=== PATIENT | female | born 1935 ===

== ENCOUNTER 2020-04-25 17:42 | Inpatient (IN) | payer OTHER, MEDICARE ==
--- NOTE | 2020-04-25 19:41 | RAD REPORT ---
EXAM DESCRIPTION: Christiano Single View04/25/2020 7:10 pm CLINICAL HISTORY: cough COMPARISON: none FINDINGS: The lungs are hyperaerated. The aorta is tortuous/ectatic The lungs appear clear of acute infiltrate. The heart is normal size IMPRESSION: No acute abnormalities displayed
[2020-04-25] MEDS ORDERED: NA CHLORIDE 0.9% 500 ML ONE (19:51)
[2020-04-25] MEDS ORDERED: NA CHLORIDE 0.9% 1,000 ML ONE (19:52)
[2020-04-25 19:59] LABS: Absolute Lymphocytes (CBC) 2.2 K/uL (0.7-4.9); Basophils % 0.4 % (0-1.3); Hematocrit 38.1 % (36.0-45.0); Lymphocytes % 16.2 % (15.3-44.8); MPV 9.6 fL (7.6-11.3); RBC Red Blood Cell Count 4.18 M/uL (3.86-4.86)
[2020-04-25 20:00] LABS: Protime INR 1.16
[2020-04-25 20:15] LABS: ALT/SGPT 10 U/L (12-78); AST/SGOT 18 U/L (15-37); Albumin 2.6 g/dL (3.4-5.0); Alkaline Phosphatase 83 U/L (45-117); BUN Blood Urea Nitrogen 140 mg/dL (7-18); Bicarbonate 19 mmol/L (21-32); Bilirubin Direct 0.1 mg/dL (0-0.2); Bilirubin Total 0.3 mg/dL (0.2-1.0); Glucose Level 104 mg/dL (74-106); Lipase 255 U/L (73-393); Magnesium 2.9 mg/dL (1.8-2.4); NT PRO-BNP 4378 pg/mL (<450); Potassium 5.2 mmol/L (3.5-5.1); Protein, Total 9.4 g/dL (6.4-8.2); Sodium Level 141 mmol/L (136-145); Troponin (Emerg Dept Use Only) 0.02 ng/mL (0.0-0.045)
[2020-04-25 20:16] LABS: Valproic Acid (Depakene) Level < 3.0 ug/mL (50-100)
[2020-04-25] MEDS ORDERED: CEFTRIAXONE/SWI 1gm 1 GM/10 ML SYR ONE (20:28)
[2020-04-25 21:20] LABS: Urine Blood 2+ (NEG); Urine Glucose NEGATIVE (NEG); Urine Protein 2+ (NEG); Urine pH 7.5 (5.0-7.0)
[2020-04-25 22:59] LABS: Urine Amorphous Sediment 1+ /HPF (NONE SEEN); Urine Bacteria >50 /HPF (<20); Urine Culture Reflex Order REFLEXED; Urine Mucus 1+ /HPF (NONE SEEN)
--- NOTE | 2020-04-25 23:14 | EDPHYS ---
Physician Documentation [facility] Name: Faina Peter Age: 84 yrs Sex: Female : 1935 Arrival Date: 04/25/2020 Time: 17:50 Bed 14 Private MD: ED Physician Jin Pastor HPI: 04/25 19:09 This 84 yrs old Unknown Female presents to ER via EMS with complaints of Decreased christina Appetite. 19:09 The patient has shortness of breath at rest, with light activity. Onset: The christina symptoms/episode began/occurred 2 day(s) ago. Duration: The symptoms are continuous, and are steadily getting worse. The patient's shortness of breath is aggravated by coughing, light activity. weak, decreased appetite, dementia, and dnr. Associated signs and symptoms: Pertinent positives: non-productive cough, dizziness, nausea. Severity of symptoms: At their worst the symptoms were mild moderate in the emergency department the symptoms are unchanged. Historical: - Allergies: 18:02 No Known Allergies; jl7 - Home Meds: 18:02 furosemide 20 mg Oral tab [Active]; aspirin 81 mg Oral TbEC [Active]; Depakote 250 mg jl7 Oral TbEC 1 tab once daily [Active]; Symbicort 80-4.5 mcg/actuation inhalation HFAA [Active]; Remeron 15 mg Oral tab .5 tab once daily [Active]; Coreg 25 mg Oral tab 1 tab 2 times per day [Active]; sertraline 25 mg oral tab 1 tab once daily [Active]; Klor-Con Sprinkle 8 mEq oral cpER 1 cap once daily [Active]; Norvasc 5 mg Oral tab 1 tab once daily [Active]; pravastatin 10 mg oral tab 1 tab once daily [Active]; clopidogrel 75 mg oral tab 1 tab once daily [Active]; - PMHx: 18:02 COPD; CHF; Hypertension; Diabetes - NIDDM; TIA; CAD; Dementia; GERD; Hyperlipidemia; jl7 chronic kidney disease; Anxiety; Depression; - Immunization history:: Adult Immunizations up to date. - Social history:: Smoking status: unknown. - Family history:: not pertinent. ROS: 19:09 Constitutional: Negative for fever, chills, and weight loss, Eyes: Negative for injury, christina pain, redness, and discharge, ENT: Negative for injury, pain, and discharge, Neck: Negative for injury, pain, and swelling, Cardiovascular: Negative for chest pain, palpitations, and edema, Abdomen/GI: Negative for abdominal pain, nausea, vomiting, diarrhea, and constipation, Back: Negative for injury and pain, : Negative for injury, bleeding, discharge, and swelling, Skin: Negative for injury, rash, and discoloration, Psych: Negative for depression, anxiety, suicide ideation, homicidal ideation, and hallucinations, Allergy/Immunology: Negative for hives, rash, and allergies, Endocrine: Negative for neck swelling, polydipsia, polyuria, polyphagia, and marked weight changes, Hematologic/Lymphatic: Negative for swollen nodes, abnormal bleeding, and unusual bruising. 19:09 Respiratory: Positive for cough, with no reported sputum. 19:09 Abdomen/GI: Positive for anorexia. 19:09 Neuro: Positive for weakness. Exam: 19:09 Constitutional: This is a well developed, well nourished patient who is awake, alert, christina and in no acute distress. Head/Face: Normocephalic, atraumatic. ENT: Nares patent. No nasal discharge, no septal abnormalities noted. Tympanic membranes are normal and external auditory canals are clear. Oropharynx with no redness, swelling, or masses, exudates, or evidence of obstruction, uvula midline. Mucous membranes moist. Neck: Trachea midline, no thyromegaly or masses palpated, and no cervical lymphadenopathy. Supple, full range of motion without nuchal rigidity, or vertebral point tenderness. No Meningismus. Chest/axilla: Normal chest wall appearance and motion. Nontender with no deformity. No lesions are appreciated. Cardiovascular: Regular rate and rhythm with a normal S1 and S2. No gallops, murmurs, or rubs. Normal PMI, no JVD. No pulse deficits. Back: No spinal tenderness. No costovertebral tenderness. Full range of motion. Female : Normal external genitalia. Skin: Warm, dry with normal turgor. Normal color with no rashes, no lesions, and no evidence of cellulitis. 19:09 Eyes: Conjunctiva: pale. 19:09 Respiratory: the patient does not display signs of respiratory distress, Respirations: labored breathing, that is mild, Breath sounds: decreased breath sounds, rhonchi, Respiratory rate: 17 19:36 Musculoskeletal/extremity: DVT Exam: No signs of deep vein thrombosis. no pain, no christina swelling, no tenderness, negative Homans' sign noted on exam, no appreciated bluish discoloration, no erythema, no increased warmth. Vital Signs: 17:50 BP 111 / 65; Pulse 68; Resp 17 S; Temp 98.2(O); Pulse Ox 100% on R/A; jl7 18:00 BP 107 / 65; Pulse 70; Resp 17; Pulse Ox 100% ; Weight 48.53 kg; jl7 19:00 BP 93 / 54; Pulse 76; Resp 17; Pulse Ox 100% ; jl7 20:39 BP 107 / 48; Pulse 70; Resp 19; Temp 98.6; Pulse Ox 100% on NC; Pain 0/10; fu 22:00 BP 92 / 81; Pulse 60; Resp 16; Temp 97.6(T); Pulse Ox 100% on 2 lpm NC; Pain 0/10; fu 23:00 BP 108 / 75; Pulse 59; Resp 18; Pulse Ox 100% on 2 lpm NC; Pain 0/10; fu 04/26 00:00 BP 95 / 53; Pulse 68; Resp 14; Pulse Ox 100% on 2 lpm NC; fu 01:00 BP 92 / 58; Pulse 68; Resp 15; Pulse Ox 99% on 2 lpm NC; fu 01:30 BP 104 / 54; Pulse 70; Resp 13; Temp 97.1; Pulse Ox 100% on 2 lpm NC; fu MDM: 04/25 18:33 Patient medically screened. christina 19:13 Differential diagnosis: Anemia CHF exacerbation, Chronic Obstructive Pulmonary Disease christina pneumonia, pulmonary edema, Sepsis. Antibiotic administration: rocephin. Differential Diagnosis altered mental status, sepsis. The patient's Wells Deep Vein Thrombosis Score was calculated as follows: Imm/Surg in last 4 wks (1.5 Pts) Total Score: 0-2 Pts- Low Risk. The patient's pulmonary embolism risk score was calculated as follows: patient has experienced immobilization or surgery in the last four weeks (1.5 Pts) Total Score: 0-2 points. This patient was found to be at low risk for a pulmonary embolism by using the Well's assessment criteria. Immunization status: Pneumococcal vaccine: Influenza vaccine: Data reviewed: vital signs, nurses notes, lab test result(s), EKG, radiologic studies. Data interpreted: highway painter: rate is 76 beats/min, rhythm is normal sinus rhythm, Pulse oximetry: on 2L(s) per nasal canula, is 100 %. Test interpretation: by ED physician or midlevel provider: ECG, plain radiologic studies. Counseling: I had a detailed discussion with the patient and/or guardian regarding: the historical points, exam findings, and any diagnostic results supporting the discharge/admit diagnosis, lab results, radiology results, the need for further work-up and treatment in the hospital. 19:19 Transition of care: After a detail discussion of the patient's case, care is christina transferred to Singh MALONEY. ED course: singh rebolledo to dispo patient, admission . 04/25 18:52 Order name: Basic Metabolic Panel [facility] 04/25 18:52 Order name: CBC with Diff [facility] 04/25 18:52 Order name: LFT's [facility] 04/25 18:52 Order name: Magnesium [facility] 04/25 18:52 Order name: NT PRO-BNP [facility] 04/25 18:52 Order name: PT-INR; Complete Time: 21:06 [facility] 04/25 18:52 Order name: Troponin (emerg Dept Use Only); Complete Time: 21:06 [facility] 04/25 18:52 Order name: Blood Culture Adult (2) [facility] 04/25 18:52 Order name: Lipase; Complete Time: 21:06 [facility] 04/25 18:52 Order name: Lactate; Complete Time: 21:06 [facility] 04/25 18:52 Order name: Procalcitonin; Complete Time: 21:06 [facility] 04/25 18:52 Order name: Depakote; Complete Time: 21:06 [facility] 04/25 18:52 Order name: Basic Metabolic Panel; Complete Time: 21:06 [facility] 04/25 18:52 Order name: CBC with Automated Diff; Complete Time: 21:06 [facility] 04/25 18:52 Order name: XRAY Chest (1 view); Complete Time: 21:06 [facility] 04/25 18:52 Order name: EKG; Complete Time: 18:53 [facility] 04/25 18:52 Order name: Cardiac monitoring; Complete Time: 19:39 [facility] 04/25 18:52 Order name: EKG - Nurse/Tech; Complete Time: 19:59 [facility] 04/25 18:52 Order name: IV Saline Lock; Complete Time: 19:39 [facility] 04/25 18:52 Order name: Labs collected and sent; Complete Time: 19:39 [facility] 04/25 18:52 Order name: Liver (Hepatic) Function; Complete Time: 21:06 [facility] 04/25 18:52 Order name: Magnesium; Complete Time: 21:06 [facility] 04/25 18:52 Order name: NT PRO-BNP; Complete Time: 21:06 [facility] 04/25 21:14 Order name: Urine Dipstick--Ancillary (enter results); Complete Time: 21:45 tt3 04/25 21:38 Order name: Urine Microscopic Only; Complete Time: 23:12 tt3 04/25 23:01 Order name: Urine Culture [facility] 04/25 23:26 Order name: COVID-19 jr8 04/25 18:52 Order name: O2 Per Protocol; Complete Time: 19:39 [facility] 04/25 18:52 Order name: O2 Sat Monitoring; Complete Time: 19:39 [facility] 04/25 18:52 Order name: Urine Dipstick-Ancillary (obtain specimen); Complete Time: 00:31 [facility] 04/25 18:52 Order name: Crystal; Complete Time: 21:06 [facility] 04/25 21:38 Order name: Urine Dipstick-Ancillary (obtain specimen); Complete Time: 00:46 tt3 Administered Medications: 19:46 Drug: NS 0.9% 500 ml Route: IV; Rate: bolus; Site: right forearm; fu 20:46 Follow up: Response: No adverse reaction fu 20:21 Drug: Rocephin 1 grams Route: IV; Rate: per protocol; Site: right forearm; fu 20:21 Follow up: Response: No adverse reaction fu 20:21 Drug: NS 0.9% 1000 ml Route: IV; Rate: 100 ml/hr; Site: right forearm; fu Disposition: 04/25/20 23:14 Hospitalization ordered by Lucas Delacruz for Inpatient Admission. Preliminary diagnosis are Dehydration, Hypotension, Urinary tract infection, site not specified, Acute on Chronic Kidney Failure. - Bed requested for Telemetry/MedSurg (Inpatient). - Status is Inpatient Admission. fu - Condition is Stable. - Problem is new. - Symptoms have improved. Signatures: Dispatcher [employer] EDJin Bella MD MD cha Roszak, Josh, PA PA jr8 Garcia, Cindy, RN RN cg Aron Buchanan RN RN jl7 Foreign Larose, DARRICK HOLLINGSWORTH Marcus, Maged tt3 Corrections: (The following items were deleted from the chart) 23:23 23:14 Hospitalization Ordered by Lucas Sexton for Inpatient Admission. Preliminary jr8 diagnosis is Dehydration; Hypotension; Urinary tract infection, site not specified; Chronic kidney disease (CKD). Bed requested for Telemetry/MedSurg (Inpatient). Status is Inpatient Admission. Condition is Stable. Problem is new. Symptoms have improved. jr8 04/26 00:50 04/25 23:23 04/25/2020 23:14 Hospitalization Ordered by Lucas Darshan for Inpatient cg Admission. Preliminary diagnosis is Dehydration; Hypotension; Urinary tract infection, site not specified; Acute on Chronic Kidney Failure. Bed requested for Telemetry/MedSurg (Inpatient). Status is Inpatient Admission. Condition is Stable. Problem is new. Symptoms have improved. [facility] 04/26 01:51 00:50 04/25/2020 23:14 Hospitalization Ordered by [facility] for Inpatient cg Admission. Preliminary diagnosis is Dehydration; Hypotension; Urinary tract infection, site not specified; Acute on Chronic Kidney Failure. Bed requested for Telemetry/MedSurg (Inpatient). Status is Inpatient Admission. Condition is Stable. Problem is new. Symptoms have improved. cg 03:36 01:51 04/25/2020 23:14 Hospitalization Ordered by Lucas Delacruz for Inpatient fu Admission. Preliminary diagnosis is Dehydration; Hypotension; Urinary tract infection, site not specified; Acute on Chronic Kidney Failure. Bed requested for Telemetry/MedSurg (Inpatient). Status is Inpatient Admission. Condition is Stable. Problem is new. Symptoms have improved. cg
--- NOTE | 2020-04-25 23:14 | ER ---
Nurse's Notes [facility] Name: Faina Peter Age: 84 yrs Sex: Female : 1935 Arrival Date: 04/25/2020 Time: 17:50 Bed 14 Private MD: Diagnosis: Dehydration;Hypotension;Urinary tract infection, site not specified;Acute on Chronic Kidney Failure Presentation: 04/25 17:50 Chief complaint: EMS states: Toned out to transport pt to ER for decreased appetite and jl7 fluid intake x 2 days, pt's BP on arrival was 80/40, gave 450 mL NS IV and BP came up to 120/75. Coronavirus screen: Proceed with normal triage. Patient denies a cough. Patient denies shortness of breath or difficulty breathing. Patient denies measured and/or subjective temperature greater than 100.4F prior to today's visit. Patient denies travel on a cruise ship or to a country the [facility] currently lists as an affected area. Patient denies contact with known and/or suspected case of COVID-19. Ebola Screen: No symptoms or risks identified at this time. Initial Sepsis Screen: Does the patient meet any 2 criteria? No. Patient's initial sepsis screen is negative. Does the patient have a suspected source of infection? No. Patient's initial sepsis screen is negative. Risk Assessment: Do you want to hurt yourself or someone else? Patient reports no desire to harm self or others. Onset of symptoms was April 23, 2020. Care prior to arrival: Medication(s) given: Normal saline infusion, 450 mL IV initiated. 20 GA, in the right forearm, Glucose check: 164. Transition of care: La Garcia. 17:50 Method Of Arrival: EMS: SABRINA jl7 17:50 Acuity: CHRISTIAN 3 jl7 Triage Assessment: 18:02 General: Appears in no apparent distress. uncomfortable, Behavior is calm, cooperative, jl7 appropriate for age. Pain: Denies pain. EENT: Oral mucosa is dry. Neuro: Level of Consciousness is awake, alert, obeys commands, Oriented to person, place. Cardiovascular: Patient's skin is warm and dry. Respiratory: Airway is patent Respiratory effort is even, unlabored, Respiratory pattern is regular, symmetrical. GI: No signs and/or symptoms were reported involving the gastrointestinal system. Derm: Skin is dry, Skin is pale, Skin temperature is warm. Historical: - Allergies: 18:02 No Known Allergies; jl7 - Home Meds: 18:02 furosemide 20 mg Oral tab [Active]; aspirin 81 mg Oral TbEC [Active]; Depakote 250 mg jl7 Oral TbEC 1 tab once daily [Active]; Symbicort 80-4.5 mcg/actuation inhalation HFAA [Active]; Remeron 15 mg Oral tab .5 tab once daily [Active]; Coreg 25 mg Oral tab 1 tab 2 times per day [Active]; sertraline 25 mg oral tab 1 tab once daily [Active]; Klor-Con Sprinkle 8 mEq oral cpER 1 cap once daily [Active]; Norvasc 5 mg Oral tab 1 tab once daily [Active]; pravastatin 10 mg oral tab 1 tab once daily [Active]; clopidogrel 75 mg oral tab 1 tab once daily [Active]; - PMHx: 18:02 COPD; CHF; Hypertension; Diabetes - NIDDM; TIA; CAD; Dementia; GERD; Hyperlipidemia; jl7 chronic kidney disease; Anxiety; Depression; - Immunization history:: Adult Immunizations up to date. - Social history:: Smoking status: unknown. - Family history:: not pertinent. Screenin:00 Abuse screen: Denies threats or abuse. Denies injuries from another. Tuberculosis jl7 screening: No symptoms or risk factors identified. Fall Risk No fall in past 12 months (0 pts). Secondary diagnosis (15 points) dementia, IV access (20 points). Ambulatory Aid- None/Bed Rest/Nurse Assist (0 pts). Gait- Weak (10 pts.). Mental Status- Overestimates/Forgets Limitations (15 pts.). Assessment: 18:05 General: See triage assessment. jl7 19:00 Reassessment: Patient appears in no apparent distress at this time. No changes from fu previously documented assessment. Patient and/or family updated on plan of care and expected duration. Pain level reassessed. Patient is alert, oriented x 3, equal unlabored respirations, skin warm/dry/pink. 20:00 Reassessment: Patient appears in no apparent distress at this time. No changes from fu previously documented assessment. Patient and/or family updated on plan of care and expected duration. Pain level reassessed. Patient is alert, oriented x 3, equal unlabored respirations, skin warm/dry/pink. 21:00 Reassessment: Patient appears in no apparent distress at this time. No changes from fu previously documented assessment. Patient and/or family updated on plan of care and expected duration. Pain level reassessed. Patient is alert, oriented x 3, equal unlabored respirations, skin warm/dry/pink. 22:00 Reassessment: Patient appears in no apparent distress at this time. No changes from fu previously documented assessment. Patient and/or family updated on plan of care and expected duration. Pain level reassessed. Patient is alert, oriented x 3, equal unlabored respirations, skin warm/dry/pink. cueto catheter in place, urine draining freely. 23:00 Reassessment: Patient appears in no apparent distress at this time. No changes from fu previously documented assessment. patient sleep in bed, monitors attached. 23:59 Reassessment: Dr. Delacruz in patient's room. 04/26 02:08 Reassessment: Patient appears in no apparent distress at this time. No changes from fu previously documented assessment. Patient and/or family updated on plan of care and expected duration. Pain level reassessed. Patient is alert, oriented x 3, equal unlabored respirations, skin warm/dry/pink. need for admission instructed to patient. Vital Signs: 04/25 17:50 BP 111 / 65; Pulse 68; Resp 17 S; Temp 98.2(O); Pulse Ox 100% on R/A; jl7 18:00 BP 107 / 65; Pulse 70; Resp 17; Pulse Ox 100% ; Weight 48.53 kg; jl7 19:00 BP 93 / 54; Pulse 76; Resp 17; Pulse Ox 100% ; jl7 20:39 BP 107 / 48; Pulse 70; Resp 19; Temp 98.6; Pulse Ox 100% on NC; Pain 0/10; fu 22:00 BP 92 / 81; Pulse 60; Resp 16; Temp 97.6(T); Pulse Ox 100% on 2 lpm NC; Pain 0/10; fu 23:00 BP 108 / 75; Pulse 59; Resp 18; Pulse Ox 100% on 2 lpm NC; Pain 0/10; fu 04/26 00:00 BP 95 / 53; Pulse 68; Resp 14; Pulse Ox 100% on 2 lpm NC; fu 01:00 BP 92 / 58; Pulse 68; Resp 15; Pulse Ox 99% on 2 lpm NC; fu 01:30 BP 104 / 54; Pulse 70; Resp 13; Temp 97.1; Pulse Ox 100% on 2 lpm NC; fu ED Course: 04/25 17:50 Patient arrived in ED. jl7 17:54 Triage completed. jl7 18:02 Arm band placed on right wrist. jl7 18:05 Patient has correct armband on for positive identification. Placed in gown. Bed in low jl7 position. Call light in reach. Side rails up X2. security expert on. Pulse ox on. NIBP on. Warm blanket given. 18:33 Jin Pastor MD is Attending Physician. [facility] 19:06 Foreign Larose RN is Primary Nurse. fu 19:09 XRAY Chest (1 view) In Process Unspecified. EDMS 19:38 NT PRO-BNP Sent. fu 19:38 Magnesium Sent. fu 19:38 LFT's Sent. fu 19:39 CBC with Diff Sent. fu 19:39 Basic Metabolic Panel Sent. fu 20:21 Blood Culture Adult (2) Sent. fu 20:44 Singh Rivas PA is PHCP. jr8 21:07 Cueto cath inserted, using sterile technique, 16 Fr., balloon inflated, urine specimen fu collected. 22:18 Urine Microscopic Only Sent. fu 23:13 Lucas Delacruz is Hospitalizing Provider. 8 04/26 00:31 COVID-19 Sent. fu 02:04 No provider procedures requiring assistance completed. fu 02:04 Patient admitted, IV remains in place. fu Administered Medications: 04/25 19:46 Drug: NS 0.9% 500 ml Route: IV; Rate: bolus; Site: right forearm; fu 20:46 Follow up: Response: No adverse reaction fu 20:21 Drug: Rocephin 1 grams Route: IV; Rate: per protocol; Site: right forearm; fu 20:21 Follow up: Response: No adverse reaction fu 20:21 Drug: NS 0.9% 1000 ml Route: IV; Rate: 100 ml/hr; Site: right forearm; fu Outcome: 23:14 Decision to Hospitalize by Provider. 8 04/26 02:05 Admitted to Tele accompanied by nurse, via stretcher, room 414, Report called to christopher Forbes RN Condition: stable Instructed on the need for admit. 03:36 Patient left the ED. christopher Signatures: Dispatcher [employer] EDJin Bella MD MD cha Roszak, Josh, PA PA jr8 Leal, Jahala, RN RN jl7 Foreign Larose RN RN fu
--- NOTE | 2020-04-26 00:25 | P.HP ---
Certification for Inpatient Patient admitted to: Inpatient With expected LOS: <2 Midnights Practitioner: I am a practitioner with admitting privileges, knowledge of patient current condition, hospital course, and medical plan of care. Services: Services provided to patient in accordance with Admission requirements found in Title 42 Section 412.3 of the Code of Federal Regulations Patient History Date of Service: 04/26/20 Reason for admission: Generalized weakness History of Present Illness: 84-year-old woman with a history of hypertension, diabetes mellitus type 2 was brought to the emergency department due to 2 day history poor oral intake. Patient was hypotensive on arrival. Systolic blood pressure in the ED was in the 80s. No fever reported. Patient was confused during my examination in the ED and could not provide any history. Chest x-ray shows no acute infiltrate. Her serum creatinine and BUN are severely elevated denoting acute renal failure. She also has evidence of metabolic acidosis. UA suggest the presence of UTI. Patient is admitted for further management. - Past Medical/Surgical History -: Hypertension -: Diabetes -: CAD -: Dementia -: Chronic kidney disease - Family History Family History: Reviewed- Non-Contributory - Social History Smoking Status: Never smoker Alcohol use: No CD- Drugs: No Place of Residence: Home Review of Systems is unable to be obtained (Due to confusion) Physical Examination - Physical Exam General: In no apparent distress, Confused HEENT: Normocephalic, PERRLA, Mucous membr. moist/pink, Sclerae nonicteric Neck: Supple, JVD not distended Respiratory: Clear to auscultation bilaterally, Normal air movement Cardiovascular: No edema, Regular rate/rhythm, Normal S1 S2 Gastrointestinal: Normal bowel sounds, Soft and benign, No tenderness Musculoskeletal: No swelling, No erythema Neurological: Normal speech, Normal strength at 5/5 x4 extr - Studies Laboratory Data (last 24 hrs) 04/25/20 19:30: PT 13.7 H, INR 1.16 04/25/20 19:30: WBC 13.5 H, Hgb 11.8 L, Hct 38.1, Plt Count 203 04/25/20 19:30: Sodium 141, Potassium 5.2 H, BUN 140 H, Creatinine 4.19 H, Glucose 104, Magnesium 2.9 H, Total Bilirubin 0.3, AST 18, ALT 10 L, Alkaline Phosphatase 83, Lipase 255 Assessment and Plan - Problems (Diagnosis) (1) Acute on chronic kidney failure Current Visit: Yes Status: Acute (2) Acute cystitis Current Visit: Yes Status: Acute (3) Diabetes mellitus Current Visit: Yes Status: Acute (4) Metabolic encephalopathy Current Visit: Yes Status: Acute (5) Metabolic acidosis Current Visit: Yes Status: Acute - Plan Admit to the medical floor. Noted patient has been taking Lasix which could contribute to the acute renal failure. Hold Lasix. IV hydration Empiric IV Rocephin Follow urine culture and blood cultures Nephrology consult pending creatinine response to IV hydration Obtain renal ultrasound. Insulin sliding scale for glucose management. Patient is being screened for COVID 19 Droplet isolation. - Advance Directives Does patient have a Living Will: No Does patient have a Durable POA for Healthcare: No
[2020-04-26] MEDS ORDERED: ACETAMINOPHEN 500 MG TAB PO PRN (03:29)
[2020-04-26 03:41] VITALS: BMI 19.2
[2020-04-26] MEDS ORDERED: CEFTRIAXONE/SWI 1gm 1 GM/10 ML SYR IV SCH (05:00)
[2020-04-26] MEDS: HEPARIN 5000 UNIT/ML 1 ML VIAL SQ SCH ×3 (05:22→20:40)
[2020-04-26] MEDS: NA CHLORIDE 0.9% 1,000 ML IV SCH ×2 (05:22→20:41)
[2020-04-26] MEDS: INSULIN -REGULAR HUMAN 50 UNIT/0.5 ML ML SQ SCH ×4 (07:30→21:00)
--- NOTE | 2020-04-26 11:25 | EKG ---
Test Date: 2020-04-25 Test Time: 19:55:45 Paper Conservator: JOHNATHON MEASUREMENT RESULTS: Intervals: Rate: 72 MA: 190 QRSD: 72 QT: 436 QTc: 477 [place]: P: 54 MA: 190 QRS: -69 T: 84 INTERPRETIVE STATEMENTS: Normal sinus rhythm Left axis deviation Inferior infarct, age undetermined Abnormal ECG No previous ECG available for comparison Electronically Signed On 04-26-20 11:23:18 CDT by Milo Clarke
--- NOTE | 2020-04-26 15:22 | P.PN ---
Date of Service: 04/26/20 awaiting renal eval , follow repeat bmp
[2020-04-26 16:04] LABS: Potassium 4.5 mmol/L (3.5-5.1)
[2020-04-26] MEDS: SODIUM BICARB 325 MG TAB PO SCH (20:41)
[2020-04-26] MEDS: CEFTRIAXONE/SWI 1gm 1 GM/10 ML SYR IV SCH (20:41)
[2020-04-27] MEDS: HEPARIN 5000 UNIT/ML 1 ML VIAL SQ SCH ×3 (04:21→21:10)
[2020-04-27] MEDS: NA CHLORIDE 0.9% 1,000 ML IV SCH (06:09)
[2020-04-27 06:41] LABS: Basophils % 0.5 % (0-1.3); Hematocrit 34.8 % (36.0-45.0); Lymphocytes % 17.9 % (15.3-44.8); MPV 9.8 fL (7.6-11.3); RBC Red Blood Cell Count 3.85 M/uL (3.86-4.86)
[2020-04-27 07:28] LABS: Magnesium 2.4 mg/dL (1.8-2.4); Phosphorus 3.5 mg/dL (2.5-4.9); Potassium 4.2 mmol/L (3.5-5.1); Thyroid Stimulating Hormone 1.19 uIU/mL (0.360-3.740)
[2020-04-27] MEDS: INSULIN -REGULAR HUMAN 50 UNIT/0.5 ML ML SQ SCH ×4 (07:30→21:00)
[2020-04-27] MEDS: SODIUM BICARB 325 MG TAB PO SCH ×2 (09:00→21:09)
[2020-04-27] MEDS ORDERED: D5W 1,000 ML with NA BICARB 8.4% 50 MEQ IV SCH ×2 (09:00)
--- NOTE | 2020-04-27 09:02 | P.PN ---
Subjective Date of Service: 04/27/20 Chief Complaint: Generalized weakness Subjective: No new changes Physical Examination - Vital Signs Temperature: 98.6 F Blood Pressure: 141/69 Pulse: 74 Respirations: 18 Pulse Ox (%): 100 - Physical Exam General: Alert, Confused, Delirious HEENT: Atraumatic, Normocephalic, PERRLA Neck: Supple, 2+ carotid pulse no bruit Respiratory: Clear to auscultation bilaterally, Normal air movement Gastrointestinal: Normal bowel sounds, Hypoactive Musculoskeletal: No clubbing, No swelling Neurological: Abnormal gait, Abnormal speech - Studies Microbiology Data (last 24 hrs): 04/26/20 00:22 Nasopharnyx Coronavirus COVID-19 PCR - Final Assessment And Plan - Current Problems (Diagnosis) (1) Hypernatremia Current Visit: Yes Status: Acute (2) Acute cystitis Current Visit: Yes Status: Acute (3) Acute on chronic kidney failure Current Visit: Yes Status: Acute (4) Diabetes mellitus Current Visit: Yes Status: Acute (5) Metabolic acidosis Current Visit: Yes Status: Acute (6) Metabolic encephalopathy Current Visit: Yes Status: Acute Physician Review: Patient Assessed, Agree with Above Assessment and Plan Physician Review Additional Text: - change IVF to d5 with sodium bicarbonate at 50 meq - still rising serum sodium - c/w abx for UTI -follow renal sono to r/o hydro -creatinine improving but still follow pending renal consult - still confused , may be baseline but follow after correction of acidosis and hypernatremia -follow still pending Covid 19 screening
[2020-04-27] MEDS: D5W 1,000 ML with NA BICARB 8.4% 50 MEQ IV SCH ×4 (11:00→21:30)
[2020-04-27 17:11] LABS: Potassium 3.8 mmol/L (3.5-5.1)
--- NOTE | 2020-04-27 20:32 | RAD REPORT ---
EXAM DESCRIPTION: US - Renal Ultrasound-Complete - 04/27/2020 7:35 pm CLINICAL HISTORY: . Acute renal failure COMPARISON: None. FINDINGS: The right kidney measures 9 centimeters with a mildly increased echotexture. It contains s everal cysts. The largest measures 2.3 centimeters. Mild hydronephrosis is present. . The left kidney measures 9 centimeters with a mildly increased echotexture. It contains several cysts . The largest measures 3.1 centimeters. The bladder is decompressed and poorly evaluated. Abdominal aortic aneurysm has an AP diameter 4.6 centimeters. It contains a large amount of thrombus IMPRESSION: 4.6 centimeter abdominal aortic aneurysm Mild right hydronephrosis Increased renal echotexture consistent with parenchymal disease
[2020-04-27] MEDS: CEFTRIAXONE/SWI 1gm 1 GM/10 ML SYR IV SCH (21:09)
[2020-04-27] MEDS ORDERED: SODIUM BICARB 50 MEQ/50ML VIAL ONE (21:35)
[2020-04-27] MEDS ORDERED: D5W 1,000 ML IV ONE (21:36)
--- NOTE | 2020-04-27 23:16 | CON ---
Date of Consultation: 04/26/2020 Chief Complaint: Acute on chronic kidney injury, nonoliguric. History Of Present Illness: Patient was admitted to the hospital. She was found to have dehydration, hypernatremia. Sodium level was 147 on arrival to the hospital, although was 141. The patient was found to have metabolic acidosis. Bicarbonate was 17, it dropped from 19. Patient was started on IV fluids and because of severe hyperazotemia on arrival to the hospital, BUN was 140 and improved to 109, creatinine level was elevated and on arrival to the hospital was 4.19 and improved to 2.52. The patient is on IV fluids for acute on chronic kidney injury. A renal ultrasound was ordered and results are not available. Patient is 84-year-old woman who presented to the hospital because of generalized weakness. She has history of hypertension, diabetes mellitus with renal manifestation. She was brought to the emergency room because of 2 days history of poor p.o. intake and failure to thrive. Patient was hypotensive on arrival, systolic blood pressure in the emergency room was 80. Patient does not have fever, chills, or syncope. She could not provide review of systems or medical history. Chest x-ray showed no acute infiltrate. Serum creatinine and BUN were severely elevated corresponding with severe acute on chronic kidney injury. There was evidence of metabolic acidosis. Urinalysis was suggestive of UTI. Patient was admitted for IV antibiotics and management of severe acute kidney injury. Review of Systems: Unobtainable. Past Medical History: Hypertension, diabetes mellitus, dementia, coronary artery disease, chronic kidney disease. Family History: No kidney disease in the family. Social History: Denies tobacco, alcohol, or illicit drug. Physical Examination: General: Patient is not in apparent distress. She although is confused, cannot provide medical history. Eyes: Anicteric sclerae. EOMI. Ears, Nose, Mouth, and Throat: Oral mucosa moist. No pallor. Neck: Supple, no bruits. Lungs: Diminished breath sounds at bases. Normal respiratory effort. Cardiovascular: S1, S2. No pericardial friction rub. Gastrointestinal: Normal bowel sounds. Abdomen: Benign, soft, nontender. Musculoskeletal: No swelling, no erythema, no oozing. No muscle tenderness. No joint swelling. Neurologic: Patient is confused. She does not have tremor. Cranial nerves intact. SKIN: Warm and dry. No skin rashes. Laboratory Data: Hemoglobin 11.8, hematocrit 38.1, platelet count 203,000, WBC 13.5. Sodium 141, potassium 5.2, BUN 140, creatinine 4.19, glucose 104, magnesium 2.9, AP 83, lipase 255, bilirubin 0.3. Impression And Plan: 1. Acute on chronic kidney injury with severe hyperazotemia. Continue IV fluids with bicarb drip to control metabolic acidosis, acute cystitis, urinary tract infection. Start antibiotics for urinary tract infection and possible urosepsis. 2. Renal ultrasound will be done to rule out obstructive uropathy. Monitor urine output and electrolytes. Continue hydration with sodium bicarbonate to treat metabolic acidosis. 3. Diabetes mellitus. Continue insulin. 4. Patient had a test done for coronavirus disease 2019, and results are pending. TAYLOR/DASH Voice ID: [id number] Report ID: [id number] MTDD
--- NOTE | 2020-04-28 00:13 | PN ---
Date of Progress Note: 04/26/2020 History Of Present Illness: Acute on chronic kidney injury, severe prerenal azotemia, nonoliguric, A TN. Renal function has improved somewhat since yesterday. BUN is gradually improving with IV dehydr ation. Patient had screen done for COVID, results are pending. Patient has ultrasound done to rule out obstructive uropathy. She remains nonoliguric. On arrival to the hospital, she has mild episode s of hyperkalemia, which gradually improved. Metabolic acidosis is treated and bicarbonate improved from 17 to 20. There is ongoing hypernatremia, although sodium improved from 152 to 151. Patient is on IV fluids an d fluids were adjusted to prevent hypernatremia. Review of Systems: Unobtainable. Patient appears to be lethargic and she has history of dementia. She cannot provide r eview of systems. Physical Examination: Lungs: Diminished breath sounds at bases. Heart: S1, S2. Abdomen: Soft, benign. Extremities: Minimal edema. Impression And Plan: 1.Hypernatremia, hyperosmolar. IV fluids were adjusted to treat volume depletion and dehydration. Patient was found to have metabolic acidosis. Bicarbonate drip is started. Monitor renal function. Adjust treatment accordingly. 2.Acute on chronic kidney injury. Creatinine level has improved over last 48 hours. On arrival to the hospital, her creatinine was 4.19, today is 1.88. 3.Diabetes mellitus. Continue insulin. 4.Acute on chronic kidney injury. Awaiting renal ultrasound report. Monitor electrolytes closely including magnesium and phosphorus. Adjust IV fluids for adequate hydra tion. EB/MODL Voice ID: [id number] Report ID: [id number]
[2020-04-28] MEDS: HEPARIN 5000 UNIT/ML 1 ML VIAL SQ SCH ×3 (04:33→22:04)
[2020-04-28 05:41] LABS: Absolute Lymphocytes (CBC) 2.2 K/uL (0.7-4.9); Basophils % 0.7 % (0-1.3); Hematocrit 33.7 % (36.0-45.0); Lymphocytes % 20.4 % (15.3-44.8); MPV 9.4 fL (7.6-11.3); RBC Red Blood Cell Count 3.75 M/uL (3.86-4.86)
[2020-04-28 06:26] LABS: Potassium 3.6 mmol/L (3.5-5.1)
[2020-04-28] MEDS: INSULIN -REGULAR HUMAN 50 UNIT/0.5 ML ML SQ SCH ×4 (07:30→21:00)
[2020-04-28] MEDS: D5W 1,000 ML with NA BICARB 8.4% 50 MEQ IV SCH ×2 (08:00)
[2020-04-28] MEDS ORDERED: POTASSIUM CL SA 10 MEQ TAB PO ONE (09:00)
[2020-04-28] MEDS: SODIUM BICARB 325 MG TAB PO SCH ×2 (09:13→22:05)
[2020-04-28] MEDS ORDERED: D5W 1,000 ML with NA BICARB 8.4% 50 MEQ IV SCH ×2 (09:30)
[2020-04-28] MEDS: D5W 1,000 ML IV SCH ×2 (11:11→22:03)
[2020-04-28] MEDS ORDERED: Meropenem 1,000 MG in NA CHLORIDE 0.9% 100 ML IV SCH (12:00)
[2020-04-28] MEDS: Meropenem 500 MG in NA CHLORIDE 0.9% 100 ML IV SCH ×2 (13:36→22:06)
--- NOTE | 2020-04-28 15:12 | P.PN ---
Subjective Date of Service: 04/28/20 Primary Care Provider: skilled nursing Chief Complaint: Generalized weakness Subjective: Other (Decreased mentation.) Physical Examination - Vital Signs Temperature: 97.6 F Blood Pressure: 136/74 Pulse: 76 Respirations: 16 Pulse Ox (%): 94 - Physical Exam General: Alert HEENT: Atraumatic Neck: Supple Respiratory: Clear to auscultation bilaterally, Normal air movement Cardiovascular: Normal pulses, Regular rate/rhythm Gastrointestinal: No masses, No rebound, No guarding Integumentary: Other (Patient appears dehydrated.) - Studies Microbiology Data (last 24 hrs): 04/25/20 21:07 Clean Catch Urine [place] Count - Final >100,000 CFU/ML. 04/25/20 21:07 Clean Catch Urine - Final Escherichia Coli Esbl 04/26/20 00:22 Nasopharnyx Coronavirus COVID-19 PCR - Final Medications List Reviewed: Yes Assessment & Plan Discharge Plan: Residential Plan to discharge in: 48 Hours Physician Review Additional Text: Impression: Acute on chronic renal failure stage V with metabolic acidosis, hypernatremia, hyperkalemia Acute toxic encephalopathy related to UTI, urine culture positive for E coli- ESBL complicated with mild right hydronephrosis HTN Dementia Moderate protein malnutrition Hyperlipidemia Depression with anxiety Anemia of chronic disease Plan: Acute on chronic renal failure stage V with metabolic acidosis, hypernatremia, hyperkalemia: Continue with Nephrology recommendations. Patient on IV antibiotic therapy and IV fluids. Patient has ESBL. Patient will require IV meropenem for 7 days. PICC line will need to be placed. Will try to get a hold of family about her overall status. Will need to address advanced directives and advance care planning. Patient appears to have underlying dementia with poor oral intake. Will recommend hospice at discharge. Acute toxic encephalopathy related to UTI, urine culture positive for E coli- ESBL complicated with mild right hydronephrosis: Will order PICC line. Patient currently on IV meropenem. HTN: Hold medication at this time. Blood pressure stable. Dementia: Overall stable. Moderate protein malnutrition: Will have dietary address diet. Hyperlipidemia: Hold medication at this time Depression with anxiety: Continue medication. Will need to determine why patient is taking Depakote. It may be due to underlying bipolar disorder. Anemia of chronic disease: Will monitor closely. Time Spent Managing Pts Care (In Minutes): 55
--- NOTE | 2020-04-28 18:05 | RAD REPORT ---
EXAM DESCRIPTION: RAD - Chest Single View - 04/28/2020 5:58 pm CLINICAL HISTORY: PICC line placement COMPARISON: April 25 FINDINGS: Portable chest was obtained following placement of a right upper extremity PICC line. The catheter tip is in the SVC atrial junction.
[2020-04-28] MEDS: HOME MED 1 EA UNK (Budesonide/Formoterol Fumarate [Symbicort 80-4.5 Mcg Inhaler] 2 PUFF) IH SCH (21:00)
[2020-04-28] MEDS ORDERED: DIVALPROEX SODIUM 250 MG PO SCH (21:00)
[2020-04-28] MEDS: DIVALPROEX DR 250 MG TAB PO SCH (22:03)
[2020-04-28] MEDS: GLUCERNA SHAKE 237 ML CAN PO SCH (22:04)
[2020-04-28] MEDS: JUVEN PACKET PO SCH (22:04)
--- NOTE | 2020-04-29 02:15 | PN ---
Date of Progress Note: 04/28/2020 Chief Complaint: Acute on chronic kidney injury, severe prerenal azotemia, nonoliguric ATN. Renal function has improved over last few days. BUN is gradually improving with IV fluids. Patient was found to have severe azotemia on arrival to the hospital. Patient had ultrasound done to rule ou t obstructive uropathy. Patient had screen test done for COVID, results are pending. Metabolic acid osis was treated with bicarbonate and bicarbonate improved from 17 to 20. There is ongoing hypernatremia, although sodium level is improving gradually over the last 48 hours. Review of Systems: Denies new complaints. Patient has history of dementia and is lethargic. Review of systems unobtain able. Physical Examination: Lungs: Diminished breath sounds at bases. Heart: S1, S2. Abdomen: Soft, benign. Extremities: Minimal edema. Laboratory Data: Sodium 150, potassium 3.6, chloride 121, CO2 of 24, BUN 56, creatinine 1.53, calciu m 8.0. On arrival to the hospital, creatinine level was 4.19 and BUN was 140. Bicarbonate was 17 im proved gradually to 20. Impression And Plan: 1.Acute on chronic kidney injury. Ultrasound was done and results are available today. Right kidne y 9 cm with mild increased echotexture contains several cysts, largest measures 2.3 cm. Mild hydrone phrosis is present. The left kidney measures 9 cm with mild increased echotexture containing several cysts, 4.6 cm abdominal aortic and mild right hydronephrosis increased echotexture. I recommend to consult urologist for hydronephrosis. Patient has 4.6 cm abdominal aortic aneurysm. Re commend cardiology consultation. TAYLOR/DASH Voice ID: [id number] Report ID: [id number]
[2020-04-29 05:46] LABS: Potassium 3.7 mmol/L (3.5-5.1)
[2020-04-29] MEDS: D5W 1,000 ML IV SCH ×4 (07:00→22:00)
[2020-04-29] MEDS: INSULIN -REGULAR HUMAN 50 UNIT/0.5 ML ML SQ SCH ×4 (07:30→21:00)
[2020-04-29] MEDS: SERTRALINE HCL 50 MG TAB PO SCH (08:56)
[2020-04-29] MEDS: CLOPIDOGREL 75 MG TABLET PO SCH (08:56)
[2020-04-29] MEDS: ASPIRIN 81 MG CHEWABLE TABLET PO SCH (08:56)
[2020-04-29] MEDS: JUVEN PACKET PO SCH ×2 (08:56→21:24)
[2020-04-29] MEDS: THIAMINE HCL 100 MG TABLET PO SCH (08:56)
[2020-04-29] MEDS: Meropenem 500 MG in NA CHLORIDE 0.9% 100 ML IV SCH ×2 (08:56→21:23)
[2020-04-29] MEDS: SODIUM BICARB 325 MG TAB PO SCH ×2 (08:56→21:23)
[2020-04-29] MEDS: GLUCERNA SHAKE 237 ML CAN PO SCH ×2 (08:57→21:24)
[2020-04-29] MEDS: HEPARIN 5000 UNIT/ML 1 ML VIAL SQ SCH ×2 (08:57→21:25)
[2020-04-29] MEDS ORDERED: POTASSIUM 25 MEQ EFFERV TAB PO ONE ×2 (09:00)
[2020-04-29] MEDS: HOME MED 1 EA UNK (Budesonide/Formoterol Fumarate [Symbicort 80-4.5 Mcg Inhaler] 2 PUFF) IH SCH ×2 (09:00→21:00)
--- NOTE | 2020-04-29 16:23 | P.PN ---
Subjective Date of Service: 04/29/20 Primary Care Provider: residential Chief Complaint: Generalized weakness Subjective: No new changes, No C/O voiced, Improving Review of Systems 10-point ROS is otherwise unremarkable Physical Examination - Vital Signs Temperature: 98.7 F Blood Pressure: 138/59 Pulse: 79 Respirations: 16 Pulse Ox (%): 99 - Physical Exam General: Alert, In no apparent distress, Cachectic HEENT: Atraumatic, Normocephalic Neck: Supple Respiratory: Clear to auscultation bilaterally, Normal air movement Cardiovascular: Normal pulses, Regular rate/rhythm, Normal S1 S2 Capillary refill: <2 Seconds Gastrointestinal: Normal bowel sounds, Soft and benign Musculoskeletal: No contractures, No erythema Integumentary: No significant lesion, No tenderness/swelling Neurological: Normal strength at 5/5 x4 extr, Normal tone, Sensation intact - Studies Medications List Reviewed: Yes Assessment & Plan Discharge Plan: Home Plan to discharge in: 24 Hours - Code Status/Comfort Care Code Status Assessed: Yes (DNR) Physician Review: Patient Assessed, Agree with Above Assessment and Plan Physician Review Additional Text: Impression: Acute on chronic renal failure stage V with metabolic acidosis, hypernatremia, hyperkalemia Acute toxic encephalopathy related to UTI, urine culture positive for E coli- ESBL complicated with mild right hydronephrosis HTN Dementia Moderate protein malnutrition Hyperlipidemia Depression with anxiety Anemia of chronic disease Plan: Acute on chronic renal failure stage V with metabolic acidosis, hypernatremia, hyperkalemia: Continue with Nephrology recommendations. Patient on IV antibiotic therapy and IV fluids. Patient has ESBL. Patient will require IV meropenem for 7 days. PICC has been placed. Discussed case with family yesterday, simba now will continue with current plan, family is considering hospice. Anticipate D/C in the next 24 hours Acute toxic encephalopathy related to UTI, urine culture positive for E coli- ESBL complicated with mild right hydronephrosis: PICC in place. Patient currently on IV meropenem. HTN: Hold medication at this time. Blood pressure stable. Dementia: Overall stable. Moderate protein malnutrition: Will have dietary address diet. Hyperlipidemia: Hold medication at this time Depression with anxiety: Continue medication. Will need to determine why patient is taking Depakote. It may be due to underlying bipolar disorder. Anemia of chronic disease: Will monitor closely. Critical Care: No Time Spent Managing Pts Care (In Minutes): 55
--- NOTE | 2020-04-29 16:41 | PN ---
Date of Progress Note: 04/29/2020 Subjective: Patient was admitted to the hospital with acute kidney injury. Creatinine was above 4. It was secondary to prerenal ATN. After hydration, kidney function started improving. Physical Examination: General: When I saw the patient, patient was slightly confused. Vital Signs: Blood pressure 126/65, pulse of 72, afebrile. Patient had urine retention. Had urine output of 1350. Chest: Clear to auscultation. Heart: S1, S2. Systolic murmur. Abdomen: Soft, nontender. Extremities: No edema. Neuro: Alert, no focal. Laboratory Data: WBC 10.9, H and H 10.8/33.7, platelets 163. Sodium 147, potassium 3.7, bicarb 26, BUN 40, creatinine 1.2, calcium 7.9. Urinalysis was positive for infection. Culture growing ESBL E coli. Current Medications: The patient on includes meropenem, aspirin, Plavix, Zoloft, Januvia, D5. Assessment And Plan: 1. Acute kidney injury secondary to toxic acute tubular necrosis/prerenal, poor perfusion, recovered, resolved. 2. Hyponatremia. Continue IV D5. I am going to go ahead and increase the D5 to 100. 3. Hypokalemia. We will supplement. 4. Extended spectrum beta-lactamase. Continue current meropenem f/u UCS sensitivity. Dose is appropriate. 5. Acidosis, recovered, resolved . I am going to go ahead and decrease bicarb to 650. Plan to discontinue if bicarb still stable. ZACH/DASH Voice ID: [id number] Report ID: [id number] MTDAnita
[2020-04-29] MEDS: DIVALPROEX DR 250 MG TAB PO SCH (21:23)
[2020-04-30] MEDS: D5W 1,000 ML IV SCH ×3 (03:47→16:28)
[2020-04-30] MEDS: INSULIN -REGULAR HUMAN 50 UNIT/0.5 ML ML SQ SCH ×4 (07:30→21:00)
[2020-04-30] MEDS: Meropenem 500 MG in NA CHLORIDE 0.9% 100 ML IV SCH ×2 (08:05→16:29)
[2020-04-30] MEDS: SERTRALINE HCL 50 MG TAB PO SCH (08:06)
[2020-04-30] MEDS: THIAMINE HCL 100 MG TABLET PO SCH (08:06)
[2020-04-30] MEDS: SODIUM BICARB 325 MG TAB PO SCH ×2 (08:06→22:13)
[2020-04-30] MEDS: GLUCERNA SHAKE 237 ML CAN PO SCH ×2 (08:06→22:14)
[2020-04-30] MEDS: JUVEN PACKET PO SCH ×2 (08:07→22:14)
[2020-04-30] MEDS: ASPIRIN 81 MG CHEWABLE TABLET PO SCH (08:07)
[2020-04-30] MEDS: CLOPIDOGREL 75 MG TABLET PO SCH (08:07)
[2020-04-30] MEDS: HOME MED 1 EA UNK (Budesonide/Formoterol Fumarate [Symbicort 80-4.5 Mcg Inhaler] 2 PUFF) IH SCH ×2 (08:08→21:00)
[2020-04-30] MEDS: HEPARIN 5000 UNIT/ML 1 ML VIAL SQ SCH ×2 (08:14→22:15)
[2020-04-30 09:45] LABS: Magnesium 1.9 mg/dL (1.8-2.4)
--- NOTE | 2020-04-30 11:40 | RAD REPORT ---
EXAM DESCRIPTION: RAD - Barium Swallow Modified - 04/30/2020 11:33 am CLINICAL HISTORY: dysphagia COMPARISON: Renal Ultrasound-Complete dated 04/27/2020 TECHNIQUE: The patient was given liquid, semi-solid and solid forms of barium. Lateral view fluorosc opic imaging was performed in conjunction with speech pathology service. FINDINGS: Mbs findings: laryngeal penetration : cleared with thin by tsp Other : mild esophageal reflux , prominent cricopharyngeus muscle Total fluoroscopy time: 2 minutes and 54 seconds
--- NOTE | 2020-04-30 13:50 | P.DS ---
Admission Date: 04/26/20 Discharge Date: 04/30/20 Primary Care Provider: shelter Disposition: TRANSFER TO [facility] Discharge Condition: GOOD Reason for Admission: Generalized weakness Consultations: Nephrology-Dr. Ely Procedures: Renal US: FINDINGS: The right kidney measures 9 centimeters with a mildly increased echotexture. It contains several cysts. The largest measures 2.3 centimeters. Mild hydronephrosis is present. . The left kidney measures 9 centimeters with a mildly increased echotexture. It contains several cysts. The largest measures 3.1 centimeters. The bladder is decompressed and poorly evaluated. Abdominal aortic aneurysm has an AP diameter 4.6 centimeters. It contains a large amount of thrombus IMPRESSION: 4.6 centimeter abdominal aortic aneurysm Mild right hydronephrosis Increased renal echotexture consistent with parenchymal disease Medical Problem List: Acute on chronic renal failure stage V with metabolic acidosis, hypernatremia, hyperkalemia Acute toxic encephalopathy related to UTI, urine culture positive for E coli- ESBL complicated with mild right hydronephrosis HTN Dementia Moderate protein malnutrition Hyperlipidemia Depression with anxiety 4.6 cm abdominal aortic aneurysm Anemia of chronic disease COPD Brief History of Present Illness: 84-year-old female with multiple medical problems including hypertension, hyperlipidemia, depression with anxiety, anemia chronic disease and dementia. Patient came from the shelter with decreased mentation and poor oral intake. Patient found with acute encephalopathy related to UTI and acute on chronic renal failure stage 5. Metabolic acidosis with hypernatremia and hyperkalemia were noted. Patient admitted for further evaluation and treatment. Hospital Course: Patient came from the shelter with decreased poor oral intake and mentation. Patient found to have acute toxic encephalopathy related to UTI. Patient also presented with acute on chronic renal failure stage 5 with metabolic acidosis, hypernatremia and hyperkalemia. Nephrology was consulted. Patient found to have UTI with E coli-ESBL. Patient required IV fluid hydration and IV antibiotic therapy. Patient has significantly improved. Renal function back to baseline at stage III. PICC line has been in place. At discharge patient will return to the shelter on IV meropenem 500 mg twice daily for 7 days. Recommend to recheck urine culture after that time. If negative PICC line can be removed. Case discussed with family. Advanced directives also addressed. Patient is do not resuscitate. Family has reported patient has declined in health over the past several months. There are times where she does not take her medication and has poor oral intake. Recommend possible hospice at the shelter if her condition declines in the future. This can be further addressed with family at the shelter. Patient with hypertension. Medications have been adjusted in the course of her stay. patient previously on Norvasc 5 mg daily and carvedilol 25 mg 1 pill twice daily. At discharge patient will continue with Norvasc 5 mg daily. Carvedilol will be discontinued. Recommend to monitor blood pressure daily. Recommend to maintain blood pressure less 150/80. If blood pressure remains elevated carvedilol may need to be added. This can be further addressed by the nursing physician. Patient with dementia. Patient back to baseline. Patient stable at this time. Patient with moderate protein malnutrition. Patient will continue with oral supplementation. Encourage oral intake. If this continues to decline as recommended above, hospice should be considered. Patient was evaluated by speech therapy to evaluate for possible dysphagia. This was unremarkable. Patient may continue with current diet. Patient with depression with anxiety. Patient will continue with her current medication including Depakote 250 mg at bedtime and Zoloft 25 mg daily. Patient also takes Remeron 7.5 mg at bedtime.. Patient with anemia of chronic disease. This remained stable. Recommend to recheck CBC in 2-4 weeks to monitor stability. Patient with hyperlipidemia. Patient may continue with her medication- pravastatin 10 mg daily. Patient also takes aspirin and Plavix. Patient will continue with these medications. Patient also with history of COPD. Patient will continue with Symbicort 2 puffs twice daily and albuterol/Atrovent as needed for shortness of breath. Patient may continue with oxygen if required to maintain sats above 90%. Patient has abdominal aortic aneurysm. It measures 4.6. This can be monitored closely as an outpatient. May require repeat ultrasound in 1 year. Vital Signs/Physical Exam: Temp Pulse Resp BP Pulse Ox 97 F 75 18 153/75 H 100 04/30/20 12:04/30/20 12:04/30/20 12:00 04/30/20 12:04/30/20 12:00 General: Alert, Cooperative, Demented, Other HEENT: Atraumatic Neck: Supple Respiratory: Clear to auscultation bilaterally, Normal air movement Cardiovascular: Normal pulses, Regular rate/rhythm Gastrointestinal: Normal bowel sounds, Soft and benign, Non-distended Integumentary: Other (Muscle wasting to the upper lower extremities) Neurological: Normal speech, Normal strength at 5/5 x4 extr, Dementia Laboratory Data at Discharge: WBC 10.9 K/uL (4.3-10.9) 04/28/20 05:06 Hgb 10.8 g/dL (12.0-15.0) L 04/28/20 05:06 Hct 33.7 % (36.0-45.0) L 04/28/20 05:06 Plt Count 163 K/uL (152-406) 04/28/20 05:06 PT 13.7 SECONDS (9.5-12.5) H 04/25/20 19:30 INR 1.16 04/25/20 19:30 Sodium 141 mmol/L (136-145) 04/30/20 09:16 Potassium 4.0 mmol/L (3.5-5.1) 04/30/20 09:16 BUN 34 mg/dL (7-18) H 04/30/20 09:16 Creatinine 1.13 mg/dL (0.55-1.3) 04/30/20 09:16 Glucose 130 mg/dL (74-106) H 04/30/20 09:16 Phosphorus 3.5 mg/dL (2.5-4.9) 04/27/20 06:17 Magnesium 1.9 mg/dL (1.8-2.4) D 04/30/20 09:16 Total Bilirubin 0.3 mg/dL (0.2-1.0) 04/25/20 19:30 AST 18 U/L (15-37) 04/25/20 19:30 ALT 10 U/L (12-78) L 04/25/20 19:30 Alkaline Phosphatase 83 U/L (45-117) 04/25/20 19:30 Lipase 255 U/L (73-393) 04/25/20 19:30 Home Medications: RX: Acetaminophen [Tylenol] 650 mg PO Q8HP PRN 04/26/20 RX: Amlodipine [Norvasc*] 5 mg PO DAILY 04/26/20 RX: Aspirin 81 mg PO DAILY 04/26/20 RX: Budesonide/Formoterol Fumarate [Symbicort 80-4.5 Mcg Inhaler] 2 puff IH BID 04/26/20 RX: Clopidogrel Bisulfate [Plavix*] 75 mg PO DAILY 04/26/20 RX: Divalproex Sodium [Depakote] 250 mg PO BEDTIME 04/26/20 RX: Ipratropium/Albuterol Sulfate [Iprat-Albut 0.5-3(2.5) mg/3 ml] 3 ml IH Q6HP PRN 04/26/20 RX: Mag Hydroxide 8% [Milk Of Magnesia*] 30 ml PO DAILYPRN PRN 04/26/20 RX: Mirtazapine [Remeron*] 7.5 mg PO BEDTIME 04/26/20 RX: Pravastatin Sodium 10 mg PO BEDTIME 04/26/20 RX: Sertraline [Zoloft*] 25 mg PO DAILY 04/26/20 RX: Glucerna Shake [Glucerna*] 237 ml PO BID #60 can 04/30/20 New Medications: RX: Glucerna Shake [Glucerna*] 237 ml PO BID #60 can Patient Discharge Instructions: 1. Return to shelter with IV antibiotics in place. 2. Patient came from the shelter with decreased poor oral intake and mentation. Patient found to have acute toxic encephalopathy related to UTI. Patient also presented with acute on chronic renal failure stage 5 with metabolic acidosis, hypernatremia and hyperkalemia. Nephrology was consulted. Patient found to have UTI with E coli-ESBL. Patient required IV fluid hydration and IV antibiotic therapy. Patient has significantly improved. Renal function back to baseline at stage III. PICC line has been in place. At [facility] patient will return to the shelter on IV meropenem 500 mg twice daily for 7 days. Recommend to recheck urine culture after that time. If negative PICC line can be removed. Case discussed with family. Advanced directives also addressed. Patient is do not resuscitate. Family has reported patient has declined in health over the past several months. There are times where she does not take her medication and has poor oral intake. Recommend possible hospice at the shelter if her condition declines in the future. This can be further addressed with family at the shelter. 3. Patient with hypertension. Medications have been adjusted in the course of her stay. patient previously on Norvasc 5 mg daily and carvedilol 25 mg 1 pill twice daily. At discharge patient will continue with Norvasc 5 mg daily. Carvedilol will be discontinued. Recommend to monitor blood pressure daily. Recommend to maintain blood pressure less 150/80. If blood pressure remains elevated carvedilol may need to be added. This can be further addressed by the nursing physician. 4. Patient with dementia. Patient back to baseline. Patient stable at this time. 5. Patient with moderate protein malnutrition. Patient will continue with oral supplementation. Encourage oral intake. If this continues to decline as recommended above, hospice should be considered. Patient was evaluated by speech therapy to evaluate for possible dysphagia. This was unremarkable. Patient may continue with current diet. 6. Patient with depression with anxiety. Patient will continue with her current medication including Depakote 250 mg at bedtime and Zoloft 25 mg daily. Patient also takes Remeron 7.5 mg at bedtime.. 7. Patient with anemia of chronic disease. This remained stable. Recommend to recheck CBC in 2-4 weeks to monitor stability. 8. Patient with hyperlipidemia. Patient may continue with her medication-pravastatin 10 mg daily. 9. Patient also takes aspirin and Plavix. Patient will continue with these medications. 10. Patient also with history of COPD. Patient will continue with Symbicort 2 puffs twice daily and albuterol/Atrovent as needed for shortness of breath. Patient may continue with oxygen if required to maintain sats above 90%. 11. Patient has abdominal aortic aneurysm. It measures 4.6. This can be monitored closely as an outpatient. May require repeat ultrasound in 1 year. Diet: AHA Activity: Fall precautions Time spent managing pt's care (in minutes): 55
--- NOTE | 2020-04-30 20:34 | PN ---
Date of Progress Note: 04/30/2020 History Of Present Illness: The patient was admitted with acute kidney injury secondary to prerenal hypernatremia. After hydration, kidney function trending back to baseline. Hypernatremia has been c orrected. The patient is more awake today. Physical Examination: Vital Signs: Blood pressure 153/75, pulse of 75, afebrile. The patient had good urine output of 110 0. Chest: Clear to auscultation. Heart: S1, S2. Regular. Systolic murmur. Abdomen: Soft, nontender. Extremities: No edema. Neuro: Confused. No focality. Laboratory Data: H and H 10.8/33.7. Sodium 141, potassium 4, bicarb 27, BUN 34, creatinine 1.1, brian cium 7.7, magnesium 1.9. Current Medications: 1.Meropenem. 2.Plavix. 3.Depakote. 4.Glucerna. 5.D5 100 per hour. 6.Thiamin. Assessment And Plan: 1.Acute kidney injury secondary to prerenal, recovered, resolved. Looked to me normal volume. I am going to go ahead and discontinue IV fluid. 2.Hypomagnesemia, hypokalemia; we will supplement. 3.Urinary tract infection secondary to extended spectrum beta-lactamase, continue meropenem. 4.Hypernatremia resolved, discontinue IV fluid. 5.Patient cleared from the renal standpoint for discharge planning. PEÑA Voice ID: [id number] Report ID: [id number]
[2020-04-30] MEDS: DIVALPROEX DR 250 MG TAB PO SCH (22:13)
[2020-05-01] MEDS: INSULIN -REGULAR HUMAN 50 UNIT/0.5 ML ML SQ SCH ×2 (07:30→11:30)
[2020-05-01 08:26] VITALS: O2SAT 96
[2020-05-01] MEDS: GLUCERNA SHAKE 237 ML CAN PO SCH (08:44)
[2020-05-01] MEDS: JUVEN PACKET PO SCH (08:44)
[2020-05-01] MEDS: Meropenem 500 MG in NA CHLORIDE 0.9% 100 ML IV SCH (08:44)
[2020-05-01] MEDS: THIAMINE HCL 100 MG TABLET PO SCH (08:45)
[2020-05-01] MEDS: ASPIRIN 81 MG CHEWABLE TABLET PO SCH (08:45)
[2020-05-01] MEDS: SODIUM BICARB 325 MG TAB PO SCH (08:45)
[2020-05-01] MEDS: SERTRALINE HCL 50 MG TAB PO SCH (08:45)
[2020-05-01] MEDS: HEPARIN 5000 UNIT/ML 1 ML VIAL SQ SCH (08:45)
[2020-05-01] MEDS: CLOPIDOGREL 75 MG TABLET PO SCH (08:45)
[2020-05-01] MEDS: HOME MED 1 EA UNK (Budesonide/Formoterol Fumarate [Symbicort 80-4.5 Mcg Inhaler] 2 PUFF) IH SCH (08:46)
[2020-05-01 12:14] VITALS: BP 115/60; TEMP 98.5
== END 2020-05-01 13:28 | DRG 682 ==
LOC: ER 17:42 → ERHOLD 04-26 00:34 → 4TH 04-26 02:06 → 2ND 04-27 16:42
PROVIDERS: ADMIT Internal Medicine; ATTEND Family Medicine
PROC: 8E0ZXY6 Isolation (ICD-10-PCS; 2020-04-26)
PROC: 02HV33Z Insertion of Infusion Device into Superior Vena Cava, Percutaneous Approach (ICD-10-PCS; principal; 2020-04-28)
DX: N17.0 Acute kidney failure with tubular necrosis (principal); G92 Toxic encephalopathy; E87.2 Acidosis; E87.0 Hyperosmolality and hypernatremia; I12.0 Hypertensive chronic kidney disease with stage 5 chronic kidney disease or end stage renal disease; Z16.12 Extended spectrum beta lactamase (ESBL) resistance; E44.0 Moderate protein-calorie malnutrition; Z68.1 Body mass index [BMI] 19.9 or less, adult; N39.0 Urinary tract infection, site not specified; E11.22 Type 2 diabetes mellitus with diabetic chronic kidney disease; Z11.59 Encounter for screening for other viral diseases; I25.10 Atherosclerotic heart disease of native coronary artery without angina pectoris; Z79.82 Long term (current) use of aspirin; Z79.51 Long term (current) use of inhaled steroids; Z79.899 Other long term (current) drug therapy; J44.9 Chronic obstructive pulmonary disease, unspecified; Z86.73 Personal history of transient ischemic attack (TIA), and cerebral infarction without residual deficits; K21.9 Gastro-esophageal reflux disease without esophagitis; E86.0 Dehydration; Z66 Do not resuscitate; N13.6 Pyonephrosis; E87.5 Hyperkalemia; B96.20 Unspecified Escherichia coli [E. coli] as the cause of diseases classified elsewhere; N18.5 Chronic kidney disease, stage 5; F03.90 Unspecified dementia, unspecified severity, without behavioral disturbance, psychotic disturbance, mood disturbance, and anxiety; F41.8 Other specified anxiety disorders; D63.8 Anemia in other chronic diseases classified elsewhere; I71.4 Abdominal aortic aneurysm, without rupture
CPT/HCPCS: 36415; 51702; 71045; 74230; 76770; 80048; 80076; 80164; 81003; 81015; 82947; 83605; 83690; 83735; 83880; 84100; 84145; 84443; 84484; 85025; 85610; 87040; 87077; 87086; 87088; 87186; 92611; 93005; 96374; 99285; J0696; J1644; J7030; J7040; U0002